=== PATIENT | female | born 1960 | race Caucasian/White ===

== ENCOUNTER 2023-10-18 11:09 | Outpatient (CLI) | payer BC, SELFPAY ==
--- NOTE | ~2023-10-18 | US_ITS ---
EXAMINATION: US pelvic complete w TV INDICATION: Pelvic pain Comparison:No prior studies for comparison. TECHNIQUE: Multiple transabdominal and endovaginal sonographic images of the pelvis performed. FINDINGS: The uterus measures 5.9 x 3.6 x 3.4 cm. There is a calcified uterine fibroid on the left me asuring 2 cm. The endometrial complex measures 6 mm. There is fluid and calcifications in the endomet rium. The right ovary measures 1.7 x 1.4 x 1.3 cm. There are follicular changes measuring up to 1.4 cm. The left ovary is not visualized. There is no free fluid in the pelvis. There are no abnormal masses seen on either side. IMPRESSION: 1. Calcified uterine fibroid measuring 2 cm. 2: Thickened endomtrial complex. The differential diagnosis includes endometrial hyperplasia, polyp a nd carcinoma. Biopsy is recommended. Reviewed, dictated and finalized at location B. IMPRESSION: 1. Calcified uterine fibroid measuring 2 cm. 2: Thickened endomtrial complex. The differential diagnosis includes endometria l hyperplasia, polyp and carcinoma. Biopsy is recommended.
== END 2023-10-18 11:10 ==
LOC: GOSHIMG 11:11
PROVIDERS: Visit Provider Registered Nurse
DX: D25.9 Leiomyoma of uterus, unspecified (principal); R93.89 Abnormal findings on diagnostic imaging of other specified body structures
CPT/HCPCS: 76830; 76856